=== PATIENT | female | born 1945 | race Caucasian/White ===

== ENCOUNTER 2017-05-31 07:49 | Day surgery (SDC) | payer MEDICARE ==
[~2017-05-31 07:49] MED LIST: RINGER'S SOLUTION,LACTATED 1,000 ML IV PRN
[2017-05-31] MEDS ORDERED: RINGER'S SOLUTION,LACTATED 1,000 ML IV ONE (08:15)
[2017-05-31] MEDS ORDERED: RINGER'S SOLUTION,LACTATED 1,000 ML IV PRN (09:41)
[2017-05-31 10:46] VITALS: BP 141/73
--- NOTE | 2017-05-31 18:31 | OR ---
Operative Report - Dictated Report Narrative: OPERATIVE REPORT DATE OF OPERATION: 05/31/2017 PREOPERATIVE DIAGNOSIS: No recent dedicated colon studies POSTOPERATIVE DIAGNOSIS: Normal colonoscopy OPERATION: Colonoscopy SURGEON: Andrew Samuel MD ANESTHESIA: LINDSEY Guillory CRNA INDICATIONS FOR PROCEDURE: The patient is a 71-year-old female referred by Dr Vazquez. Her last colon exam was in 2004. There is no family history of colon cancer. The patient is currently asymptomatic FINDINGS: Very capacious, redundant colon otherwise normal exam to the cecum NARRATIVE OF PROCEDURE: The patient was identified in the holding area, and prior to the administration of anesthetic, a multidisciplinary timeout was observed. With the patient in the left lateral position and after the administration of intravenous sedation, the perineum was inspected. There was no evidence of pilonidal disease or skin breakdown. The external appearance of the anus was normal. Sphincter tone was good. The flexible fiberoptic colonoscope was inserted into the rectum which was insufflated with air. The rectal mucosa and submucosal vascular pattern appeared normal, the prep was seen to be complete. The scope was advanced through the sigmoid colon, up the descending colon, and around the splenic flexure where the triangular haustral architecture of the transverse colon was seen. The scope was advanced across the transverse colon, around the hepatic flexure to the cecum, where the confluence of tenia and the ileocecal valve were identified. The mucosa at this level appeared normal. The scope was then slowly withdrawn in a circular fashion so that all aspects of colonic mucosa were inspected. The colon was very capacious and character and redundant in course requiring standard reduction maneuvers to reach the cecum. The haustral architecture appeared well preserved throughout with no evidence of external compression. The mucosa and submucosal vascular pattern appeared normal, specifically there was no gross evidence to suggest colitis or inflammatory bowel disease and no AV malformations were seen. No pritesh diverticulosis was demonstrated. No polyps were encountered. The scope was gradually withdrawn to the level of the rectum. As much insufflated air as possible was removed. The scope was withdrawn from the patient and the procedure terminated. The patient tolerated the anesthetic and procedure well without complication and was transferred back to the ambulatory surgery area awake and in stable condition. The patient remained stable throughout a period of postoperative observation. She denied abdominal discomfort, was able to tolerate by mouth intake, and was up without assistance. I shared the operative findings with the patient and her and her and she was given copies of the photographs which appear in the medical record. She was discharged home with instructions not to engage in hazardous activity today, but may resume normal activity tomorrow, and advance diet as tolerated. She is to continue those medications as listed in the history and physical exam. RECOMMENDATION: Colon surveillance in 10 years depending upon findings and symptoms Reviewed and electronically signed
== END 2017-05-31 07:50 | disposition home or self-care (01) ==
LOC: AMB 07:49
PROVIDERS: ATTEND Surgery
PROC: 0DJD8ZZ Inspection of Lower Intestinal Tract, Via Natural or Artificial Opening Endoscopic (ICD-10-PCS; principal; 2017-05-31)
DX: Z12.11 Encounter for screening for malignant neoplasm of colon (principal); J44.9 Chronic obstructive pulmonary disease, unspecified; Z87.891 Personal history of nicotine dependence; D63.8 Anemia in other chronic diseases classified elsewhere; E78.5 Hyperlipidemia, unspecified; F32.9 Major depressive disorder, single episode, unspecified; M17.11 Unilateral primary osteoarthritis, right knee; M16.11 Unilateral primary osteoarthritis, right hip

== ENCOUNTER 2020-03-04 12:20 | Observation (INO) ==
[2020-03-04] MEDS ORDERED: METHYLPREDNISOLONE SOD SUCC/PF 125 MG/2 ML VIAL IV ONE (13:01)
[2020-03-04] MEDS ORDERED: ALBUTEROL SULFATE/IPRATROPIUM 3 ML NEBU IH ONE (13:02)
[2020-03-04 13:17] LABS: Hematocrit 41.1 % (37.0-47.0); Hemoglobin 13.2 gm/dL (12.5-16.0); Mean Cell Volume 96.7 fl (78-100); Mean Corpuscular Hemoglobin 31.1 pg (27-31); Mean Corpuscular Hgb Conc 32.1 g/dl (32-36); Mean Platelet Volume 10.1 fl (8-12.5); Platelet Count 335 K/mm3 (150-450); Red Blood Count 4.25 M/mm3 (4.2-5.4); Red Cell Distribution Width 14.2 % (11.5-14.0); White Blood Count 10.2 K/mm3 (4.0-10.5)
[2020-03-04 13:19] LABS: Total Cells Counted 100
[2020-03-04 13:32] LABS: ALT 34 U/L (19-67); AST 30 U/L (0-48); Albumin * 4.4 gm/dl (3.4-5.0); Alkaline Phosphatase * 85 U/L (50-170); Anion Gap 13.3 mmol/L (6.8-13.8); BUN/Creatinine Ratio 17.4 (9.0-21.6); Bilirubin, Total 0.6 mg/dL (0.0-1.1); Blood Urea Nitrogen 16 mg/dL (3-23); Ca. Corrected For Albumin 8.6 mg/dL (8.4-10.2); Calcium * 9.2 mg/dL (7.9-10.9); Carbon Dioxide 24.8 mmol/L (24-32.6); Chloride 101 mmol/L (97-106); Glucose * 126 mg/dL (70-110); Potassium 4.1 mmol/L (3.4-4.6); Sodium 135 mmol/L (132-142); Troponin I Less than 0.017 ng/mL (0.00-0.10)
[2020-03-04 14:05] LABS: Band 1 % (0-2.0); Eosinophil 17 % (0-3); Lymphocyte 17 % (20-51); Monocyte 6 % (0-9); Neutrophil 59 % (42-75); Platelet Estimate Normal (NORMAL)
[2020-03-04 14:06] LABS: RBC Morphology Normal (NORMAL)
[2020-03-04] MEDS ORDERED: ALBUTEROL SULFATE 2.5 MG/0.5 ML VIAL.NEB IH ONE ×3 (14:16→16:05)
[2020-03-04] MEDS ORDERED: AZITHROMYCIN 250 MG TABLET PO ONE (14:53)
--- NOTE | 2020-03-04 15:35 | ERNOTE ---
Dyspnea - Date Date of Service: 03/04/20 - General Presenting Symptoms: shortness of breath, difficulty of breathing, wheezing Time Seen by Provider: 03/04/20 12:31 Source: patient Exam Limitations: no limitations - Immun/Allergies/Home Medications Immunizations: IMMUNIZATION HX Immunizations Up to Date Yes History of Influenza Vaccine Yes Hx Pneumococcal Vaccination Yes Allergies/Adverse Reactions: Allergies No Known Allergies Allergy (Verified 03/04/20 12:46) Home Medications: HOME MEDICATIONS Albuterol Sulfate/Ipratropium [Duoneb 2.5-0.5MG/3ML Soln] 3 ml IH QID PRN [Last Taken Unknown] Aspirin [Aspirin Enteric Coated] 81 mg PO DAILY 05/28/17 [Last Taken Unknown] Budesonide/Formoterol Fumarate [Symbicort 160-4.5 Mcg Inhaler] 2 puff IH BID 05/28/17 [Last Taken Unknown] Multivitamins [Multivitamin Michelle] 1 cap PO DAILY 05/28/17 [Last Taken Unknown] cholecalciferol (vitamin D3) 25 mcg (1,000 unit) capsule 1,000 unit PO DAILY 12/21/17 [Last Taken Unknown] albuterol sulfate 90 mcg/actuation aerosol inhaler 2 puff IH Q4H PRN #25.5 g 04/12/19 [Last Taken Unknown] atorvastatin 20 mg tablet 40 mg PO QPM #180 tab 12/15/19 [Last Taken Unknown] Azithromycin [Zithromax] 250 mg PO . 1ST OF THE MONTH 03/04/20 [Last Taken Unknown] Bupropion HCl [Wellbutrin Xl] 150 mg PO DAILY 03/04/20 [Last Taken Unknown] - History of Present Illness Narrative: Patient [facility] ED [facility] ffor sats 87% RA and working to breath. She has Hx of COPD and has increased cough and SOB for the last 3-5 days. Wheezing. Worse with activity. Productive cough. No fever. No COVID exposure. Not positional. No new leg swelling. Severity: moderate Treatment PUBLIC WEIGHER: other - [facility] Initiating event: Reports: upper resp illness Frequency of episodes: Reports: occassional episodes Modifying Factors - (Improves): Reports: other - oxygen here Modifying Factors (Worsens): Reports: activity Associated Symptoms-Dyspnea: Reports: wheezing. Denies: chest pain/discomfort, leg/calf pain, ankle/leg swelling, weakness Prior Treatment: Denies: recently seen Review of Systems - Review of Systems Constitutional: Absent: fever EYE: Present: no symptoms reported ENT: Absent: sore throat Respiratory: Present: shortness of breath, cough Cardiology: Absent: chest pain Gastrointestinal/Abdominal: Absent: abdominal pain Genitourinary: Absent: dysuria Neurological: Absent: weakness All Other Systems: All systems neg except as marked Medical History (Last Reviewed 03/04/20 @ 15:35 by Kam Figueroa MD) GERD (gastroesophageal reflux disease) (Chronic) Depression (Chronic) Clinically improved Upper back pain (Acute) IFG (impaired fasting glucose) (Chronic) Acute bronchitis (Acute) Anxiety and depression (Chronic) Clinically improved Impaired fasting blood sugar (Chronic) IFG (impaired fasting glucose) (Chronic) Low back pain (Acute) s/p CELESTINA Anemia (Resolved) Acute left-sided low back pain with right-sided sciatica (Acute) Gastroesophageal reflux disease (Chronic) Hyperlipidemia (Chronic) Onset Date: Unknown COPD (chronic obstructive pulmonary disease) (Chronic) Onset Date: Unknown mild Anemia Onset Date: Unknown Depression Onset Date: ~1999 anxiety Insomnia Onset Date: Unknown Osteopenia Onset Date: Unknown spine -1.6, hip -1.2 [2009] degenerative joint disease Onset Date: Unknown fibrocystic disease Onset Date: Unknown Pneumonia Onset Date: ~1987 Surgical History: Surgical History (Last Reviewed 03/04/20 @ 15:35 by Kam Figueroa MD) H/O wisdom tooth extraction Onset Date: Unknown Normal colonoscopy Onset Date: 05/31/17 08/22/04, 05/31/17-'Tinguely-negative. 18' Bagan- very capacious redundant colon. Recheck in 10 years. Family History: Family History (Last Reviewed 03/04/20 @ 15:35 by Kam Figueroa MD) Brother Alive and well Sister Alive and well Father , 75 Myocardial infarction Mother , 84 Hypertension Sister , 54 Cancer, Onset Age: 54 brain Social History: (Last Reviewed 03/04/20 @ 15:35 by Kam Figueroa MD) Social History: Marital status: household members: spouse current occupational status: retired Highest education level completed: high school graduate Service: No Tobacco: Smoking Status: Former smoker Tobacco: How many years used: 40 Alcohol: alcohol intake: current Alcohol type: beer alcohol intake frequency: 0-2 drinks per day Substance Use: substance use type: does not use Dietary Habits: caffeine: Yes NHANES Social Connection/Isolation: NHANES soc isolation marital status: [id number] Personal Safety: victim of physical abuse: No victim of emotional abuse: No Physical Exam - Physical Exam General Appearance: Present: alert, other - mild tachypnea, cough Head Exam: Present: normal inspection, no evidence of injury Eye Exam: Normal inspection: bilateral, PERRL: bilateral Ears, Nose, Throat: Present: normal ENT inspection Neck: Present: normal inspection Respiratory: Present: respiratory distress, wheezing, other - scatetered faint wheezes bilaterally Cardiovascular/Chest: Present: normal peripheral pulses, tachycardia Gastrointestinal/Abdominal: Present: normal bowel sounds, nontender, nondistended, soft Back Exam: Present: normal range of motion Extremity Exam: Present: normal inspection, normal range of motion Neurological Exam: Present: alert, no motor/sensory deficits Skin Exam: Present: normal color, warm/dry Progress - Results and Orders Patient's Lab Results:: I have reviewed the patient's lab results. - Vital Signs Patient's Vital Signs:: I have reviewed the patient's vital signs. Vital Signs: Vital Signs 03/04/20 12:23 03/04/20 12:31 03/04/20 12:45 Temperature 36.5 C Pulse Rate 108 H 109 H 107 H Respiratory Rate 28 H 21 H 19 Blood Pressure 160/46 H 160/46 H 163/109 H O2 Sat by Pulse Oximetry 93 91 L 97 03/04/20 13:02 03/04/20 13:06 03/04/20 13:15 Temperature Pulse Rate 107 H 180 H 111 H Respiratory Rate 22 H 14 Blood Pressure 147/79 153/93 H O2 Sat by Pulse Oximetry 93 95 03/04/20 13:30 03/04/20 13:34 03/04/20 13:44 Temperature Pulse Rate 105 H 104 H 104 H Respiratory Rate 18 18 17 Blood Pressure 156/87 H O2 Sat by Pulse Oximetry 95 94 03/04/20 14:46 Temperature Pulse Rate 121 H Respiratory Rate 27 H Blood Pressure O2 Sat by Pulse Oximetry 86 L - EKG EKG #1 EKG read: Interp. by me EKG Comments: Sinus tachycardia rate 108. No evidence of STEMI - X-Ray X-Ray #1 X-Ray: chest Interpretation: Interp. by me X-ray Comments: I personally reviewed CXR image as wellas official radiology report - Progress/Reassessment Chief Complaint: Dyspnea Progress Note-Subjective: 03/04/20 15:31 Patient has clinical COPD exacerbation with hypoxia. She desats to 86% with ambulation and becomes quite tachypnic. She is agreeable to staying. IV steroids and 3 neb treatments given without resolution of wheezing. I spoke with Dr Vazquez who will admit. Departure Clinical Impression: Hypoxia, COPD exacerbation - Departure Disposition: Still a patient Condition: Fair
--- NOTE | 2020-03-04 16:28 | HP ---
Chief Complaint - Chief Complaint Date of Service: 03/04/20 Time of Service: 16:28 Chief Complaint: increasing shortness of breath History of Present Illness: Nisha Salcedo is a 74-year-old white female with past medical history significant for COPD, gastroesophageal reflux disease, impaired fasting glucose, anxiety and depression, hyperlipidemia, who was admitted on 03/04/2020 because of increasing shortness of breath. 4 days prior to admission the patient started having increasing shortness of breath associated with cough at times productive of whitish to brownish phlegm. She denied any fever or chills. today patient shortness of breath got even worse with wheezing and so she went to our respiratory clinic where she was found to be saturating only around 87% on room air and was hard working hard to breathe. She was then wheeled to the emergency room where she was found to have a WBC count of 10.2, hemoglobin of 13.2, lymphocyte of 17%, eosinophils of 20%, electrolytes within normal limits, creatinine of 0.92 with a GFR of 63, random blood sugar 126, liver function test within normal limits, and SARS-CoV-2 2 PCR testing was negative. Her chest x- ray showed no acute cardiopulmonary process except for hyperinflation. She was admitted with acute COPD exacerbation for observation. Medical History (Last Reviewed 03/04/20 @ 16:00 by Scarlet Ramirez RN) GERD (gastroesophageal reflux disease) (Chronic) Depression (Chronic) Clinically improved Upper back pain (Acute) IFG (impaired fasting glucose) (Chronic) Acute bronchitis (Acute) Anxiety and depression (Chronic) Clinically improved Impaired fasting blood sugar (Chronic) IFG (impaired fasting glucose) (Chronic) Low back pain (Acute) s/p CELESTINA Anemia (Resolved) Acute left-sided low back pain with right-sided sciatica (Acute) Gastroesophageal reflux disease (Chronic) Hyperlipidemia (Chronic) Onset Date: Unknown COPD (chronic obstructive pulmonary disease) (Chronic) Onset Date: Unknown mild Anemia Onset Date: Unknown Depression Onset Date: ~1999 anxiety Insomnia Onset Date: Unknown Osteopenia Onset Date: Unknown spine -1.6, hip -1.2 [2009] degenerative joint disease Onset Date: Unknown fibrocystic disease Onset Date: Unknown Pneumonia Onset Date: ~1987 Surgical History: Surgical History (Last Reviewed 03/04/20 @ 16:00 by Scarlet Ramirez RN) H/O wisdom tooth extraction Onset Date: Unknown Normal colonoscopy Onset Date: 05/31/17 08/22/04, 05/31/17-'Tinguely-negative. ' Bagan- very capacious redundant colon. Recheck in 10 years. Family History: Family History (Last Reviewed 03/04/20 @ 16:00 by Scarlet Ramirez RN) Brother Alive and well Sister Alive and well Father , 75 Myocardial infarction Mother , 84 Hypertension Sister , 54 Cancer, Onset Age: 54 brain Social History: (Last Reviewed 03/04/20 @ 16:00 by Scarlet Ramirez RN) Social History: Marital status: household members: spouse current occupational status: retired Highest education level completed: high school graduate Service: No Tobacco: Smoking Status: Former smoker Tobacco: How many years used: 40 Alcohol: alcohol intake: current Alcohol type: beer alcohol intake frequency: 0-2 drinks per day Substance Use: substance use type: does not use Dietary Habits: caffeine: Yes NHANES Social Connection/Isolation: NHANES soc isolation marital status: [id number] 1 Personal Safety: victim of physical abuse: No victim of emotional abuse: No Review Of Systems (GEN) - Review of Systems Generalized/Overall Review: Absent: Weakness, Chills, Fever EENTM: Absent: Blurred Vision Respiratory: Present: Cough, Shortness of Breath, Wheezing Cardiac: Absent: Chest Pain, Edema, Palpitations Abdominal: Absent: Nausea, Vomiting Genitourinary: Absent: Urgency, Frequency Musculoskeletal: Absent: Joint Pain, Back Pain Neurological: Absent: Headache Skin: Absent: Lesions, Rash Misc: All systems neg except as marked Immunizations: IMMUNIZATION HX Immunizations Up to Date Yes History of Influenza Vaccine Yes Hx Pneumococcal Vaccination Yes Allergies/Adverse Reactions: Allergies Allergy/AdvReac Type Severity Reaction Status Date / Time No Known Allergies Allergy Verified 03/04/20 16:00 Home Medications: HOME MEDICATIONS Albuterol Sulfate/Ipratropium [Duoneb 2.5-0.5MG/3ML Soln] 3 ml IH QID PRN 05/28/17 [Last Taken Unknown] Aspirin [Aspirin Enteric Coated] 81 mg PO DAILY 05/28/17 [Last Taken Unknown] Budesonide/Formoterol Fumarate [Symbicort 160-4.5 Mcg Inhaler] 2 puff IH BID 05/28/17 [Last Taken Unknown] Multivitamins [Multivitamin Michelle] 1 cap PO DAILY 05/28/17 [Last Taken Unknown] cholecalciferol (vitamin D3) 25 mcg (1,000 unit) capsule 1,000 unit PO DAILY 12/21/17 [Last Taken Unknown] albuterol sulfate 90 mcg/actuation aerosol inhaler 2 puff IH Q4H PRN #25.5 g 04/12/19 [Last Taken Unknown] atorvastatin 20 mg tablet 40 mg PO QPM #180 tab 12/15/19 [Last Taken Unknown] Azithromycin [Zithromax] 250 mg PO . 1ST OF THE MONTH 03/04/20 [Last Taken Unknown] Bupropion HCl [Wellbutrin Xl] 150 mg PO DAILY 03/04/20 [Last Taken Unknown] Omeprazole 40 mg PO DAILY 03/04/20 [Last Taken Unknown] Exam - Exam Vital Signs: Vital Signs - Last Taken Temp 36.7 C 03/04/20 15:53 Pulse 110 H 03/04/20 16:08 Resp 18 03/04/20 16:08 BP 163/86 H 03/04/20 15:53 Pulse Ox 93 03/04/20 16:08 Constitutional: Present: Alert, Oriented x3, Cooperative ENT Exam: Present: hearing grossly normal Eye Exam: bilateral eye: normal inspection, PERRL, EOMI Neck: Present: supple. Absent: lymphadenopathy (R), lymphadenopathy (L) Respiratory: Present: decreased breath sounds, wheezing - Occasional, No rales Cardiovascular/Chest: Present: regular rate, rhythm, no JVD, no murmur Abdomen: Present: Normal bowel sounds, soft, nontender, nondistended Extremity: Present: no pedal edema, no calf tenderness Diagnostic Studies: Abnormal Lab Results 03/04/20 03/04/20 Range/Units 12:55 12:55 MCH 31.1 H (27-31) pg RDW 14.2 H (11.5-14.0) % Lymphocytes % (Manual) 17 L (20-51) % Eosinophils % (Manual) 17 H (0-3) % Eosinophils # (Manual) 1.7 H (0.0-0.7) k/mm3 Random Glucose 126 H (70-110) mg/dL Laboratory Results WBC 10.2 K/mm3 (4.0-10.5) 03/04/20 12:55 RBC 4.25 M/mm3 (4.2-5.4) 03/04/20 12:55 Hgb 13.2 gm/dL (12.5-16.0) 03/04/20 12:55 Hct 41.1 % (37.0-47.0) 03/04/20 12:55 MCV 96.7 fl (78-100) 03/04/20 12:55 MCH 31.1 pg (27-31) H 03/04/20 12:55 MCHC 32.1 g/dl (32-36) 03/04/20 12:55 RDW 14.2 % (11.5-14.0) H 03/04/20 12:55 Plt Count 335 K/mm3 (150-450) 03/04/20 12:55 MPV 10.1 fl (8-12.5) 03/04/20 12:55 Neutrophils % (Manual) 59 % (42-75) 03/04/20 12:55 Band Neuts % (Manual) 1 % (0-2.0) 03/04/20 12:55 Lymphocytes % (Manual) 17 % (20-51) L 03/04/20 12:55 Monocytes % (Manual) 6 % (0-9) 03/04/20 12:55 Eosinophils % (Manual) 17 % (0-3) H 03/04/20 12:55 Neutrophils # (Manual) 6.0 K/mm3 (1.3-6.0) 03/04/20 12:55 Lymphocytes # (Manual) 1.7 k/mm3 (1.5-3.5) 03/04/20 12:55 Monocytes # (Manual) 0.6 k/mm3 (0.0-1.0) 03/04/20 12:55 Eosinophils # (Manual) 1.7 k/mm3 (0.0-0.7) H 03/04/20 12:55 Platelet Estimate Normal (NORMAL) 03/04/20 12:55 RBC Morphology Normal (NORMAL) 03/04/20 12:55 Sodium 135 mmol/L (132-142) 03/04/20 12:55 Plasma Sodium 135 mmol/L (130-142) 03/04/20 12:55 Potassium 4.1 mmol/L (3.4-4.6) 03/04/20 12:55 Chloride 101 mmol/L (97-106) 03/04/20 12:55 Carbon Dioxide 24.8 mmol/L (24-32.6) 03/04/20 12:55 Anion Gap 13.3 mmol/L (6.8-13.8) 03/04/20 12:55 BUN 16 mg/dL (3-23) 03/04/20 12:55 Creatinine 0.92 mg/dL (0.4-1.4) 03/04/20 12:55 Est GFR (Non-Af Amer) 63 mL/min (60-130) 03/04/20 12:55 BUN/Creatinine Ratio 17.4 (9.0-21.6) 03/04/20 12:55 Random Glucose 126 mg/dL (70-110) H 03/04/20 12:55 Lactic Acid, Venous 1.0 mmol/L (0.4-2.0) 03/04/20 12:55 Calcium 9.2 mg/dL (7.9-10.9) 03/04/20 12:55 Calcium Adj for Albumin 8.6 mg/dL (8.4-10.2) 03/04/20 12:55 Total Bilirubin 0.6 mg/dL (0.0-1.1) 03/04/20 12:55 AST 30 U/L (0-48) 03/04/20 12:55 ALT 34 U/L (19-67) 03/04/20 12:55 Alkaline Phosphatase 85 U/L (50-170) 03/04/20 12:55 Troponin I Less than 0.017 ng/mL (0.00-0.10) 03/04/20 12:55 Total Protein 8.0 gm/dL (6.2-8.2) 03/04/20 12:55 Albumin 4.4 gm/dl (3.4-5.0) 03/04/20 12:55 SARS-CoV-2 (PCR) Not detected (NotDetected) 03/04/20 13:06 Assessment/Plan - Narrative Narrative: Nisha is a 74-year-old white female was admitted for increasing shortness of breath, cough, wheezing with episodes of hypoxia due to acute COPD exacerbation. Her chest x-ray showed hyperinflation with no acute cardiopulmonary process. We will continue with her IV Solu-Medrol, p.o. antibiotic and breathing treatment. Currently patient is feeling much better and if she continues to improve clinically she will be discharged tomorrow. - Assessment/Plan (1) Hypoxia Problem: Acute (2) COPD exacerbation Problem: Acute (3) GERD (gastroesophageal reflux disease) Problem: Chronic Qualifiers: Esophagitis presence: esophagitis presence not specified Qualified Code(s): K21.9 - Gastro-esophageal reflux disease without esophagitis (4) IFG (impaired fasting glucose) Problem: Chronic (5) Anxiety and depression Problem: Chronic (6) Hyperlipidemia Problem: Chronic Qualifiers: Hyperlipidemia type: pure hypercholesterolemia Qualified Code(s): E78.00 - Pure hypercholesterolemia, unspecified
[2020-03-04] MEDS: ALBUTEROL SULFATE/IPRATROPIUM 3 ML NEBU IH SCH ×2 (18:24→22:30)
[2020-03-04] MEDS: METHYLPREDNISOLONE SOD SUCC/PF 40 MG/ML VIAL IV SCH (19:17)
[2020-03-04] MEDS ORDERED: ROSUVASTATIN CALCIUM 20 MG TABLET PO SCH (21:00)
[2020-03-05] MEDS: METHYLPREDNISOLONE SOD SUCC/PF 40 MG/ML VIAL IV SCH ×2 (01:23→07:07)
[2020-03-05] MEDS: ALBUTEROL SULFATE/IPRATROPIUM 3 ML NEBU IH SCH ×3 (02:14→10:50)
[2020-03-05 06:50] LABS: Hematocrit 37.3 % (37.0-47.0); Hemoglobin 12.3 gm/dL (12.5-16.0); Mean Cell Volume 95.4 fl (78-100); Mean Corpuscular Hemoglobin 31.5 pg (27-31); Mean Platelet Volume 10.1 fl (8-12.5); Neutrophil # 9.9 K/mm3 (1.3-6.0); Neutrophil % 89.1 % (42-75.0); Platelet Count 312 K/mm3 (150-450); Red Blood Count 3.91 M/mm3 (4.2-5.4); Red Cell Distribution Width 14.3 % (11.5-14.0); White Blood Count 11.1 K/mm3 (4.0-10.5)
[2020-03-05 06:52] LABS: BUN/Creatinine Ratio 16.1 (9.0-21.6); Calcium * 9.4 mg/dL (7.9-10.9); Carbon Dioxide 23.9 mmol/L (24-32.6); Estimated Creat Clear 42.2; Potassium 3.9 mmol/L (3.4-4.6)
[2020-03-05] MEDS ORDERED: PANTOPRAZOLE SODIUM 40 MG TABLET.EC PO SCH (07:00)
--- NOTE | 2020-03-05 08:31 | PN ---
Progess Note - Interim Date: 03/05/20 Time: 08:30 Narrative: 03/05/20 08:30 Feels better. Coughs still mostly nonproductive. will give mucinex. On O2 via NC2 1-2 L. will wean off today . leukocytosis likely due to steroids. if succesful for discharge today.
[2020-03-05] MEDS ORDERED: AZITHROMYCIN 250 MG TABLET PO SCH (09:00)
[2020-03-05] MEDS ORDERED: buPROPion HCL 150 MG TAB.SR.24H PO SCH (09:00)
[2020-03-05] MEDS ORDERED: CHOLECALCIFEROL 1,000 UNIT CAPSULE PO SCH (09:00)
[2020-03-05] MEDS ORDERED: ASPIRIN 81 MG TABLET.DR PO SCH (09:00)
[2020-03-05] MEDS ORDERED: MULTIVITAMINS 1 CAP CAPSULE PO SCH (09:00)
--- NOTE | 2020-03-05 10:40 | DS ---
(1) Hypoxia Problem: Resolved (2) COPD exacerbation Problem: Resolved (3) COPD (chronic obstructive pulmonary disease) Problem: Chronic Qualifiers: COPD type: unspecified COPD Qualified Code(s): J44.9 - Chronic obstructive pulmonary disease, unspecified (4) GERD (gastroesophageal reflux disease) Problem: Chronic Qualifiers: Esophagitis presence: esophagitis presence not specified Qualified Code(s): K21.9 - Gastro-esophageal reflux disease without esophagitis (5) IFG (impaired fasting glucose) Problem: Chronic (6) Anxiety and depression Problem: Chronic (7) Hyperlipidemia Problem: Chronic Qualifiers: Hyperlipidemia type: pure hypercholesterolemia Qualified Code(s): E78.00 - Pure hypercholesterolemia, unspecified Date of Discharge:: 03/05/20 Hospital Course: Nisha Salcedo is a 74-year-old white female with past medical history significant for COPD, gastroesophageal reflux disease, impaired fasting glucose, anxiety and depression, hyperlipidemia, who was admitted on 03/04/2020 because of increasing shortness of breath. 4 days prior to admission the patient started having increasing shortness of breath associated with cough at times productive of whitish to brownish phlegm. She denied any fever or chills. today patient shortness of breath got even worse with wheezing and so she went to our respiratory clinic where she was found to be saturating only around 87% on room air and was hard working hard to breathe. She was then wheeled to the emergency room where she was found to have a WBC count of 10.2, hemoglobin of 13.2, lymphocyte of 17%, eosinophils of 20%, electrolytes within normal limits, creatinine of 0.92 with a GFR of 63, random blood sugar 126, liver function test within normal limits, and SARS-CoV-2 2 PCR testing was negative. Her chest x- ray showed no acute cardiopulmonary process except for hyperinflation. She was admitted with acute COPD exacerbation for observation. She was started on Azithromycin and IV solumedrol with breathing treatments. Her O2 has improved back to her baseline. She remained 94-98% at RA. She is stable to be discharged today. Procedures Performed: none Results and Findings: Lab Pending Results 03/04/20 12:00: Karthikeyan Influenza A PCR Not detected, Influenza Type B (PCR) Not detected 03/04/20 12:55: WBC 10.2, RBC 4.25, Hgb 13.2, Hct 41.1, MCV 96.7, MCH 31.1 H, MCHC 32.1, RDW 14.2 H, Plt Count 335, MPV 10.1, Neutrophils % (Manual) 59, Band Neuts % (Manual) 1, Lymphocytes % (Manual) 17 L, Monocytes % (Manual) 6, Eosinophils % (Manual) 17 H, Neutrophils # (Manual) 6.0, Lymphocytes # (Manual) 1.7, Monocytes # (Manual) 0.6, Eosinophils # (Manual) 1.7 H, Platelet Estimate Normal, RBC Morphology Normal 03/04/20 12:55: Sodium 135, Plasma Sodium 135, Potassium 4.1, Chloride 101, Carbon Dioxide 24.8, Anion Gap 13.3, BUN 16, Creatinine 0.92, Est GFR (Non-Af Amer) 63, BUN/Creatinine Ratio 17.4, Random Glucose 126 H, Calcium 9.2, Calcium Adj for Albumin 8.6, Total Bilirubin 0.6, AST 30, ALT 34, Alkaline Phosphatase 85, Troponin I Less than 0.017, Total Protein 8.0, Albumin 4.4 03/04/20 12:55: Lactic Acid, Venous 1.0 03/04/20 13:06: SARS-CoV-2 (PCR) Not detected 03/05/20 06:34: WBC 11.1 H, RBC 3.91 L, Hgb 12.3 L, Hct 37.3, MCV 95.4, MCH 31.5 H, MCHC 33.0, RDW 14.3 H, Plt Count 312, MPV 10.1, Immature Gran % (Auto) 0.70 H, Immature Gran # (Auto) 0.08 H, Neutrophils % 89.1 H, Lymphocytes % 8.1 L, Monocytes % 2.0, Eosinophils % 0.0, Basophils % 0.1, Nucleated RBC % 0.0, Neutrophils # 9.9 H, Lymphocytes # 0.89 L, Monocytes # 0.2, Eosinophils # 0.0, Absolute Basophils 0.0 03/05/20 06:34: Sodium 138, Plasma Sodium 139, Potassium 3.9, Chloride 103, Carbon Dioxide 23.9 L, Anion Gap 15.0 H, BUN 14, Creatinine 0.87, Est GFR (Non- Af Amer) 67, BUN/Creatinine Ratio 16.1, Random Glucose 173 H D, Calcium 9.4 Discharge Location: Home Disposition: Home self-care Condition: Stable Discharge Activity: Activity as tolerated Discharge Diet: General/regular food Referrals: Lizzy Vazqeuz MD [Primary Care Provider] - Additional Patient Instructions (free text): Follow up with PCP in 1 week. Prescriptions (Any new or edited meds): guaiFENesin [Mucinex] 1,200 mg PO BID #10 tablet.sa Transmission Status: Pending to [facility] #[id number] predniSONE [Prednisone] 20 mg PO DAILY 5 Days #10 tab Transmission Status: Pending to [facility] #[id number] Azithromycin [Zithromax] 250 mg PO DAILY 5 Days #5 tab Transmission Status: Pending to [facility] #[id number] Complete Home Medications List: Complete Home Medication List: Albuterol Sulfate/Ipratropium [Duoneb 2.5-0.5MG/3ML Soln] 3 ml IH QID PRN 05/28/17 Aspirin [Aspirin Enteric Coated] 81 mg PO DAILY 05/28/17 Budesonide/Formoterol Fumarate [Symbicort 160-4.5 Mcg Inhaler] 2 puff IH BID 05/28/17 Multivitamins [Multivitamin Michelle] 1 cap PO DAILY 05/28/17 cholecalciferol (vitamin D3) 25 mcg (1,000 unit) capsule 1,000 unit PO DAILY 12/21/17 albuterol sulfate 90 mcg/actuation aerosol inhaler 2 puff IH Q4H PRN #25.5 g 04/12/19 atorvastatin 20 mg tablet 40 mg PO QPM #180 tab 12/15/19 Azithromycin [Zithromax] 250 mg PO . 1ST OF THE MONTH 03/04/20 Bupropion HCl [Wellbutrin Xl] 150 mg PO DAILY 03/04/20 Omeprazole 40 mg PO DAILY 03/04/20 Azithromycin [Zithromax] 250 mg PO DAILY 5 Days #5 tab 03/05/20 guaiFENesin [Mucinex] 1,200 mg PO BID #10 tablet.sa 03/05/20 predniSONE [Prednisone] 20 mg PO DAILY 5 Days #10 tab 03/05/20
[2020-03-05 12:43] VITALS: BP 147/82
== END 2020-03-05 13:05 | disposition home or self-care (01) ==
LOC: MS 12:20 → ER 12:20 → MS 15:41
PROVIDERS: ADMIT Internal Medicine; ATTEND Internal Medicine